=== PATIENT | female | born 1985 | race African-American/Black ===

== ENCOUNTER 2020-10-03 16:51 | Emergency (ER) | payer OTHER, SELFPAY ==
[2020-10-03 16:57] VITALS: BP 106/71; PULSE 90; RESP 18; TEMP 36.2; O2SAT 99
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
--- NOTE | 2020-10-03 17:50 | PC.NURSE ---
room had been found for pt. cab voucher prepared. pt seen leaving department without talking to staff.
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
== END 2020-10-03 19:54 | disposition left against medical advice (07) ==
PROVIDERS: Emergency Provider Emergency Medicine
DX: F41.9 Anxiety disorder, unspecified (principal)
CPT/HCPCS: 99281